=== PATIENT | male | born 1955 | race Caucasian/White ===

== ENCOUNTER 2020-08-22 08:00 | Outpatient (CLI) | payer OTHER ==
[~2020-08-22 08:00] MED LIST: ASPIRIN1 GM
== END 2020-08-22 08:30 | disposition home or self-care (01) ==
LOC: PPH VACUNA 08:00
DX: Z23 Encounter for immunization (principal)

== ENCOUNTER 2020-09-12 08:00 | Outpatient (CLI) | payer OTHER | END 2020-09-12 08:30 | disposition home or self-care (01) | LOC: PPH VACUNA 08:00 | DX: Z23 Encounter for immunization (principal) ==